=== PATIENT | male | born 1990 | race American Indian/Alaskan Native ===

== ENCOUNTER 2016-09-27 14:43 | Emergency (ER) | payer SELFPAY ==
[2016-09-27 15:35] VITALS: BP 126/76
== END 2016-09-27 22:14 | disposition left against medical advice (07) ==
LOC: ED 14:43
DX: S99.922A Unspecified injury of left foot, initial encounter (principal); F12.90 Cannabis use, unspecified, uncomplicated; Z72.0 Tobacco use; W04.XXXA Fall while being carried or supported by other persons, initial encounter; Y93.89 Activity, other specified; Y99.9 Unspecified external cause status; Y92.89 Other specified places as the place of occurrence of the external cause; Z53.21 Procedure and treatment not carried out due to patient leaving prior to being seen by health care provider

== ENCOUNTER 2016-09-28 03:31 | Emergency (ER) | payer SELFPAY ==
[2016-09-28 03:39] VITALS: BP 126/86
--- NOTE | 2016-09-28 06:01 | Emergency Department Report ---
HPI - General Chief Complaint: Extremity Injury, Lower Time Seen by Provider: 09/28/16 05:12 - HPI HPI: Patient is a 26-year-old male presents to ED complaining of left toe pain times the days. Patient states on Sunday while he was at work he was placing the plastic box containing some heavy object when he fell on his left toe. Patient states pain since then. Patient states he is able to walk okay. Patient denies any loss of sensation. He denies fevers/chills/nausea/vomiting abdominal pain/chest pain/shortness of breath ED Past Medical Hx - Past Medical History Previous Medical History?: No - Surgical History Past Surgical History?: No - Social History Smoking Status: Current Every Day Smoker Substance Use Type: None - Medications Home Medications: Home Medications Medication Instructions Recorded Confirmed Last Taken Type Ibuprofen [Motrin] 600 mg PO Q8H PRN #30 tablet 09/28/16 Unknown Rx ED Review of Systems ROS: Stated complaint: LEFT FOOT PAIN Other details as noted in HPI Constitutional: denies: chills, fever Eyes: denies: eye pain, eye discharge, vision change ENT: denies: ear pain, throat pain Respiratory: denies: cough, shortness of breath, wheezing Cardiovascular: denies: chest pain, palpitations Endocrine: no symptoms reported Gastrointestinal: denies: abdominal pain, nausea, diarrhea Genitourinary: denies: urgency, dysuria Musculoskeletal: denies: back pain, joint swelling, arthralgia Skin: denies: rash, lesions Neurological: denies: headache, weakness, paresthesias Psychiatric: denies: anxiety, depression Hematological/Lymphatic: denies: easy bleeding, easy bruising Physical Exam - Physical Exam Vital Signs: Vital Signs 09/28/16 03:36 Temperature 97.8 F Pulse Rate 85 Respiratory 20 Rate Blood Pressure 126/86 O2 Sat by Pulse 99 Oximetry Physical Exam: GENERAL: Alert and oriented x3, no apparent distress, Normal Gait, atraumatic. HEAD: Head is normocephalic and a-traumatic. EYES: Extra ocular muscles are intact. Pupils are equal, round, and reactive to light and accommodation. NECK: Supple. Non edematous, No carotid bruits. No lymphadenopathy or thyromegaly. No C-spine tenderness LUNGS: Symetrical with respiration, No wheezing, no rales or crackles, CTAB. HEART: S1, S2 present, regular rate and rhythm without murmur, no rubs, no gallops. Non tender to palpation EXTREMITIES/MUSCULOSKELETAL: No cyanosis, clubbing, rash, lesions or edema. Full ROM bilaterally. UE/LE Pulses 2+ bilaterally. LE and UE 5+ strength bilaterally, and cold foot joint is intact. No ecchymosis is no swelling nor erythema. No active bleeding Or wounds. Mild tenderness to palpation of the second digit toe NEUROLOGIC: The patient is cooperative with no focal neurologic deficits. Cranial nerves II through XII are grossly intact. Normal speech. No loss of sensation, SKIN: Warm and dry, No lesions, No ulceration or induration present. ED Course Vital Signs 09/28/16 03:36 Temperature 97.8 F Pulse Rate 85 Respiratory 20 Rate Blood Pressure 126/86 O2 Sat by Pulse 99 Oximetry ED Medical Decision Making - Medical Decision Making 26-year-old male presents to the ED with arthralgia of the toe ED course: Discussed patient joint pain after an injury is quite normally will resolve on its own sign discussed taken anti-inflammatory as prescribed Discussed with patient to apply heat therapy 3 times a day Discussed rest of foot Discussed follow-up with primary care physician as referred. Vital signs are normal patient is in no acute distress Critical care attestation.: If time is entered above; I have spent that time in minutes in the direct care of this critically ill patient, excluding procedure time. ED Disposition Clinical Impression: Arthralgia of toe of left foot Disposition: - TO HOME OR SELFCARE Is pt being admited?: No Does the pt Need Aspirin: No Condition: Stable Instructions: Arthralgia (ED), Heat Pack Application (ED) Prescriptions: Ibuprofen [Motrin] 600 mg PO Q8H PRN #30 tablet PRN Reason: Pain Referrals: PRIMARY CARE, [Primary Care Provider] - 3-5 Days [facility] [Outside] - 3-5 Days [facility] [Outside] - 3-5 Days [facility] [Outside] - 3-5 Days Forms: Work/School Release Form(ED), Accompanied Note Time of Disposition: 06:06
== END 2016-09-28 06:19 | disposition home or self-care (01) ==
LOC: ED 03:31
DX: M79.675 Pain in left toe(s) (principal); F17.200 Nicotine dependence, unspecified, uncomplicated
CPT/HCPCS: 99282